=== PATIENT | male | born 1960 | race Two or more races ===

== ENCOUNTER 2019-09-14 07:53 | Outpatient (CLI) | payer OTHER | END 2019-09-14 09:58 | disposition home or self-care (01) | LOC: NUCLEAR 07:53 | PROVIDERS: ATTEND Internal Medicine Geriatric Medicine | DX: C18.8 Malignant neoplasm of overlapping sites of colon (principal) | CPT/HCPCS: 78815; A9552 ==

== ENCOUNTER 2020-03-21 07:40 | Outpatient (CLI) | payer OTHER | END 2020-03-21 14:30 | disposition home or self-care (01) | LOC: NUCLEAR 07:40 | PROVIDERS: ATTEND Internal Medicine Hematology & Oncology | DX: C18.7 Malignant neoplasm of sigmoid colon (principal) | CPT/HCPCS: 78815; A9552 ==

== ENCOUNTER 2021-03-07 07:28 | Outpatient (CLI) | payer OTHER | END 2021-03-07 07:29 | disposition home or self-care (01) | LOC: NUCLEAR 07:28 | PROVIDERS: ATTEND Internal Medicine Hematology & Oncology | DX: C78.89 Secondary malignant neoplasm of other digestive organs (principal) | CPT/HCPCS: 78815; A9552 ==

== ENCOUNTER 2022-03-09 07:37 | Outpatient (CLI) | payer OTHER | END 2022-03-09 07:39 | disposition home or self-care (01) | LOC: NUCLEAR 07:37 | PROVIDERS: ATTEND Internal Medicine Hematology & Oncology | DX: C18.9 Malignant neoplasm of colon, unspecified (principal) | CPT/HCPCS: 78816; A9552 ==